=== PATIENT | male | born 1960 | race Caucasian/White ===

== ENCOUNTER → 2018-11-24 | Outpatient (CLI) | payer SELFPAY ==
--- NOTE | 2018-11-24 14:25 | Diagnostic Imaging Report ---
PROCEDURE: US Abdomen, limited. TECHNIQUE: Multiple realtime grayscale images were obtained over the abdomen in various projections. INDICATION: Hernia. COMPARISON: There are no previous studies available for comparison. FINDINGS: There is a small amount of free fluid in the abdomen and pelvis. The etiology of the ascites is not certain. Some free fluid is seen extending into the right inguinal canal. There are a few segments of bowel within the fluid, but there is no clear evidence for extension of the bowel into the inguinal canal. Even so, if further imaging is desired, then CT of the abdomen and pelvis would be recommended. IMPRESSION: There is a small amount of nonspecific ascites in the abdomen and pelvis. There is fluid extending into the right inguinal canal, but there is no clear evidence for extension of the bowel into the right inguinal canal. Recommendations as above. Dictated by: Dictated on workstation # [id number]
== END ==
LOC: RAD 12:53
PROVIDERS: ATTEND Nurse Practitioner Family
DX: K40.90 Unilateral inguinal hernia, without obstruction or gangrene, not specified as recurrent (principal); R18.8 Other ascites
CPT/HCPCS: 76705

== ENCOUNTER 2018-12-03 07:46 | Outpatient (CLI) | payer SELFPAY ==
[~2018-12-03] VITALS: Ht 177.8 cm; Wt 98.9 kg
[2018-12-03] MEDS ORDERED: LORA10TA76 PO (12:29)
== END 2018-12-03 12:39 | disposition home or self-care (01) ==
LOC: PREOP 07:46
PROVIDERS: ATTEND Surgery
DX: Z01.818 Encounter for other preprocedural examination (principal)

== ENCOUNTER 2018-12-08 13:44 | Day surgery (SDC) | payer OTHER ==
[~2018-12-08] VITALS: Ht 177.8 cm; Wt 98.9 kg
[~2018-12-08 13:44] MED LIST: LORA10TA76 PO
[2018-12-08] MEDS ORDERED: LACTATED RINGERS 1,000 ML IV ONE ×2 (14:05→15:52)
[2018-12-08 14:28] VITALS: BP 107/84
--- NOTE | 2018-12-08 14:29 | Progress Note-Pre Operative ---
Pre-Operative Progress Note H&P Reviewed The H&P was reviewed, patient examined and no changes noted. Time Seen by Provider: 14:27 Date H&P Reviewed: Dec 08, 2018 Time H&P Reviewed: 14:28 Pre-Operative Diagnosis: Change in bowel habits, Constipation, Melena and hematochezia TAYLA HOLLIDAY DO Dec 08, 2018 14:29
[2018-12-08] MEDS ORDERED: MIDAZOLAM 2 MG/2 ML (VERSED) VIAL ONE (15:16)
[2018-12-08] MEDS ORDERED: PROPOFOL INJECTION 50 ML IV ONE (15:16)
[2018-12-08] MEDS ORDERED: PHENYLEPHRINE 100 MCG/ML 10 ML (ANESTHESIA) SYR ONE (15:35)
--- NOTE | 2018-12-08 16:08 | Progress Note-Post Operative ---
Post-Operative Progess Note Surgeon (s)/Roller Hand (s) Surgeon TAYLA HOLLIDAY DO Roller Hand: none Pre-Operative Diagnosis Change in bowel habits, Constipation, Melena and hematochezia Post-Operative Diagnosis Colon polyps Internal hemorrhoids Procedure & Operative Findings Date of Procedure 12/08/18 Procedure Performed/Findings Colon with snare polypectomy Anesthesia Type IV sedation by PROOF READER Estimated Blood Loss Estimated blood loss (mL): scant Specimens/Packing Specimens Removed rectal polyp descending colon polyp transverse polyp in 3 pieces descending polyp in 3 pieces TAYLA HOLLIDAY DO Dec 08, 2018 16:08
--- NOTE | 2018-12-08 16:10 | Endoscopy Discharge Instruct ---
Endo Procedure/Findings Findings 1.: Polyp 2.: Internal Hemorrhoids Discharge Instructions - Activity: You might feel a little sleepy until tomorrow. This is due to the medicine you received to relax you. Until tomorrow, you should: NOT drive a car, operate machinery or power tools. NOT drink any alcoholic beverages. NOT make any important decisions or sign importortant papers. Do not return to work until tomorrow, unless otherwise instructed. Resume previous activities tomorrow. Diet: Start by taking liquids. If you tolerate liquids, advance to solid food. make an appointment for one week Instructions: 1.: Colonoscopy in 1 year Notify Physician - If you experience excessive bleeding, unusual abdominal pain, fever, or chest pain, contact your doctor immediately. Follow-Up: - I have received and understand the above instructions and will call my doctor if I have any further questions. Patient Signature Date Nurse Signature Other (Relationship) TAYLA HOLLIDAY DO Dec 08, 2018 16:10
[2018-12-08 16:30] VITALS: BP 109/59
--- NOTE | 2018-12-08 16:36 | Anesthesia-General Post-Op ---
MAC Patient Condition Mental Status/LOC: Same as Preop Cardiovascular: Satisfactory Nausea/Vomiting: Absent Respiratory: Satisfactory Pain: Controlled Complications: Absent Post Op Complications Complications None Follow Up Care/Instructions Patient Instructions None needed. Anesthesiology Discharge Order Discharge Order Patient is doing well, no complaints, stable vital signs, no apparent adverse anesthesia problems. No complications reported per nursing. ANASTACIO PULIDO CRNA Dec 08, 2018 16:36
[2018-12-08 16:55] VITALS: BP 105/83
[2018-12-08 17:10] VITALS: BP 105/83
--- NOTE | 2018-12-09 03:08 | OPERATIVE REPORT ---
DATE OF SERVICE: 12/08/2018 PREOPERATIVE DIAGNOSES: Screening colonoscopy. The patient also had some possible history of melena and hematochezia. PROCEDURE: Colonoscopy with snare polypectomy. SURGEON: Scottie Castro DO DIGITAL EDITOR: None. ANESTHESIA: IV sedation by ADVERTISING SALES REPRESENTATIVE. SPECIMEN: One polyp from the rectum, one polyp from the descending colon. A large polyp in the transverse colon taken in 3 pieces and then finally another descending colon polyp also taken in 3 pieces. BLOOD LOSS: Scant. FLUIDS: Per anesthesia. POSTOPERATIVE CONDITION: Stable. INDICATION FOR PROCEDURE: The patient is a 58-year-old male who has never had a colonoscopy before, had noted possible hematochezia, melena and needed a screening colonoscopy. FINDINGS: The patient had multiple polyps. He had one in the rectum, one in the descending colon and larger in the transverse colon was on a fold taken in 3 pieces. Then, another large one in the descending colon also taken in 3 pieces. In addition, he had multiple other small ones, another one in the rectum. Pictures were taken and some of them looked like there may have been hyperplastic polyps also saw some minimal internal hemorrhoids. PROCEDURE NOTE: After informed consent was obtained, the patient was brought to the endoscopy suite, placed on the bed in left lateral decubitus position. He was administered IV sedation by the ADVERTISING SALES REPRESENTATIVE who monitored his vitals the entire time, heart rate, blood pressure, pulse ox and the scope was inserted. Immediately upon entry noted a large polyp in the rectum, took a picture of this and then did a snare polypectomy and then continued up the colon and the descending colon, saw another polyp, did another snare polypectomy and then continued up all the way to cecum, took a picture of appendiceal orifice and ileocecal valve and then slowly withdrew the scope insufflating to look circumferentially at the del rio looking at the cecum, up the ascending colon to the hepatic flexure, then down the transverse colon, then the transverse colon, saw another polyp on a fold, was a large polyp. I took it off in 3 pieces with a snare and then continued down to the splenic flexure, into the descending colon and descending colon saw another polyp, also may have had a cluster of polyps, took a picture of this and then removed this in 3 pieces. All these were sent to pathology separately and then continued down the transverse colon to the sigmoid colon and finally into the rectum, retroflexed the rectal vault, saw some internal hemorrhoids. No other obvious pathology. Scope was removed. The patient tolerated the procedure and recovered in the endoscopy suite. 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
== END 2018-12-08 17:10 | disposition home or self-care (01) ==
LOC: ENDO 13:44
PROVIDERS: ATTEND Surgery
DX: Z12.11 Encounter for screening for malignant neoplasm of colon (principal); D12.4 Benign neoplasm of descending colon; D12.3 Benign neoplasm of transverse colon; K63.5 Polyp of colon; K40.90 Unilateral inguinal hernia, without obstruction or gangrene, not specified as recurrent; K40.91 Unilateral inguinal hernia, without obstruction or gangrene, recurrent; F17.210 Nicotine dependence, cigarettes, uncomplicated; Z87.01 Personal history of pneumonia (recurrent)